=== PATIENT | female | born 1990 | race Caucasian/White ===

== ENCOUNTER 2017-01-02 09:15 | Emergency (ER) | payer OTHER ==
[2017-01-02 09:27] VITALS: BMI 22.6
--- NOTE | 2017-01-02 09:49 | PDOC ---
History of Present Illness - History of Present Illness Initial Comments: 01/02/17 10:14 The patient is a 26 year old female with a significant past medical hx of herpes genitalia who presents to the ED complaining of RLQ abdominal pain and epigastric pain since 0730 this morning. She notes she woke up this morning from the pain and describes the pain as a burning sensation. The patient reports the pain was an 8/10 in severity when she woke up. She notes she was in her normal state of health last night and slept normally. She denies any radiation of pain and has not taken any OTC medication. She states her pain has since improved and is only a 3/10 in severity and feels more like pressure and bloating. The patient notes her pain is exacerbated when sitting up. The patient notes she had one episode of this burning sensation one week ago that lasted only for a few minutes. She also reports she has had constant nausea and dizziness for the past month. The patient denies any trauma. The patient notes she has one child at home, an 8 month old baby girl. She reports she had a normal vaginal delivery. LMP beginning of December. The patient denies dysuria, vaginal discharge, frequency The patient denies fever, chills, cough, SOB, chest pain The patient denies vomiting, diarrhea Allergies: Cefprozil Social: Former smoker (1-2 cigarettes per day for 6-7 years), quit 1 year ago. Smokes marijuana, drinks alcohol on occasion. Surgical: None reported <Silva Delarosa - Last Filed: 01/02/17 11:49> <Georgia Ramos - Last Filed: 01/02/17 12:45> <Joao Dumont - Last Filed: 01/02/17 12:57> - General Chief Complaint: Pain, Acute Stated Complaint: ABD PAIN Time Seen by Provider: 01/02/17 09:49 Past History <Silva Delarosa - Last Filed: 01/02/17 11:49> - Past Medical History Other medical history: DENIES. - Reproductive History Is Patient Now?: No (#): 1 Para: 1 Cervical CA: No Dysfunctional Uterine Bleeding: No Ectopic : No Endometrial CA: No Polycystic Ovaries: No Therapeutic (s) & number: No Tubal Ligation: No Spontaneous : 0 - Psycho/Social/Smoking Cessation Hx Suicidal Ideation: No Smoking History: Former smoker Have you smoked in the past 12 months: No Information on smoking cessation initiated: No <Georgia Ramos - Last Filed: 01/02/17 12:45> <Joao Dumont - Last Filed: 01/02/17 12:57> - Past Medical History Allergies/Adverse Reactions: Allergies Allergy/AdvReac Type Severity Reaction Status Date / Time cefprozil [From Cefzil] Allergy Intermediate Hives Verified 01/02/17 09:24 Home Medications: Ambulatory Orders NK [No Known Home Medication] 01/02/17 Review of Systems - Review of Systems Able to Perform ROS?: Yes Comments:: 01/02/17 10:27 CONSTITUTIONAL: Absent: fever, chills, diaphoresis, generalized weakness, malaise, loss of appetite HEENT: Absent: rhinorrhea, nasal congestion, throat pain, throat swelling, difficulty swallowing, mouth swelling, ear pain, eye pain, visual Changes CARDIOVASCULAR: Absent: chest pain, syncope, palpitations, irregular heart rate, lightheadedness , peripheral edema RESPIRATORY: Absent: cough, shortness of breath, dyspnea with exertion, orthopnea, wheezing, stridor, hemoptysis GASTROINTESTINAL: +RLQ abdominal pain, nausea. Absent: abdominal distension, vomiting, diarrhea, constipation, melena, hematochezia GENITOURINARY: Absent: vaginal discharge, dysuria, frequency, urgency, hesitancy, hematuria, flank pain, genital pain MUSCULOSKELETAL: Absent: myalgia, arthralgia, joint swelling SKIN: Absent: rash, itching, pallor HEMATOLOGIC/IMMUNOLOGIC: Absent: easy bleeding, easy bruising, lymphadenopathy, frequent infections ENDOCRINE: Absent: unexplained weight gain, unexplained weight loss, heat intolerance, cold intolerance NEUROLOGIC: +Dizziness. Absent: headache, focal weakness or paresthesias, unsteady gait, seizure, mental status changes, bladder or bowel incontinence PSYCHIATRIC: Absent: anxiety, depression, suicidal or homicidal ideation, hallucinations. <Silva Delarosa - Last Filed: 01/02/17 11:49> *Physical Exam - Vital Signs Last Vital Signs Temp Pulse Resp BP Pulse Ox 97.9 F 97 H 19 124/63 97 01/02/17 09:24 01/02/17 09:24 01/02/17 09:24 01/02/17 09:24 01/02/17 09:24 - Physical Exam Comments: 01/02/17 10:30 GENERAL: Well developed, well nourished. Awake and alert. In no acute distress. HEENT: Normocephalic, atraumatic. PERRLA, EOMI. No conjunctival pallor. Sclera are non- icteric. Moist mucous membranes. Oropharynx is clear. NECK: Supple. Full ROM. No JVD. Carotid pulses 2+ and symmetric, without bruits. No thyromegaly. No lymphadenopathy. CARDIOVASCULAR: Regular rate and rhythm. No murmurs, rubs, or gallops. Distal pulses are 2+ and symmetric. PULMONARY: No evidence of respiratory distress. Lungs clear to auscultation bilaterally. No wheezing, rales or rhonchi. ABDOMINAL: +Mild discomfort on the LLQ, tenderness to the RLQ. Soft. Non-tender. Non- distended. No rebound or guarding. No organomegaly. Normoactive bowel sounds. MUSCULOSKELETAL Normal range of motion at all joints. No bony deformities or tenderness. No CVA tenderness. EXTREMITIES: No cyanosis. No clubbing. No edema. No calf tenderness. SKIN: +Tattoos. Warm and dry. Normal capillary refill. No rashes. No jaundice. NEUROLOGICAL: Alert, awake, appropriate. Cranial nerves 2-12 intact. No deficits to light touch and temperature in face, upper extremities and lower extremities. No motor deficits in the in face, upper extremities and lower extremities. PSYCHIATRIC: Cooperative. Good eye contact. Appropriate mood and affect. <Silva Delarosa - Last Filed: 01/02/17 11:49> - Vital Signs Last Vital Signs Temp Pulse Resp BP Pulse Ox 97.9 F 97 H 19 124/63 97 01/02/17 09:24 01/02/17 09:24 01/02/17 09:24 01/02/17 09:24 01/02/17 09:24 <Georgia Ramos - Last Filed: 01/02/17 12:45> - Vital Signs Last Vital Signs Temp Pulse Resp BP Pulse Ox 97.9 F 97 H 19 124/63 97 01/02/17 09:24 01/02/17 09:24 01/02/17 09:24 01/02/17 09:24 01/02/17 09:24 <Joao Dumont - Last Filed: 01/02/17 12:57> ED Treatment Course - LABORATORY CBC & Chemistry Diagram: 01/02/17 10:22 01/02/17 10:22 - RADIOLOGY Radiograph Interpretation: 01/02/17 11:48 Transvaginal US The uterus is normal in size measuring 8.1 x 6.0 x 5.0 cm. No uterine masses are seen. A thickened endometrium of 1.4 cm thickness was demonstrated. The ovaries are normal in size and texture with arterial flow documented to both ovaries. There is no evidence of torsion. There is no evidence of adnexal masses. Free fluid is identified within the cul- de-sac. IMPRESSION: Thickened endometrium and free pelvic fluid. No evidence of ovarian torsion or acute pathology. Please see above discussion. Reported By: Isreal Salazar MD 01/02/17 1139 <Silva Delarosa - Last Filed: 01/02/17 11:49> - LABORATORY CBC & Chemistry Diagram: 01/02/17 10:22 01/02/17 10:22 <Georgia Ramos - Last Filed: 01/02/17 12:45> - LABORATORY CBC & Chemistry Diagram: 01/02/17 10:22 01/02/17 10:22 - ADDITIONAL ORDERS Additional order review: Laboratory Results 01/02/17 01/02/17 01/02/17 10:22 10:22 10:22 Sodium 140 Potassium 4.2 Chloride 105 Carbon Dioxide 27 Anion Gap 8 BUN 13 Creatinine 0.6 Creat Clearance w eGFR > 60 Random Glucose 76 Calcium 8.7 Total Bilirubin 0.4 AST 23 ALT 42 Alkaline Phosphatase 135 H Total Protein 7.3 Albumin 3.8 Lipase 67 L Serum , Qual Negative Urine Color Ltyellow Urine Appearance Clear Urine pH 6.0 Ur Specific [place] 1.025 Urine Protein Negative Urine Glucose (UA) Negative Urine Ketones Negative Urine Blood Negative Urine Nitrite Negative Urine Bilirubin Negative Urine Urobilinogen Negative Ur Leukocyte Esterase Negative 01/02/17 10:22 RBC 5.19 MCV 80.0 MCHC 32.4 RDW 15.2 MPV 9.4 Neutrophils % 60.3 Lymphocytes % 28.1 Monocytes % 8.7 Eosinophils % 2.4 Basophils % 0.5 <Joao Dumont - Last Filed: 01/02/17 12:57> Medical Decision Making - Medical Decision Making 01/02/17 9:49 Patient seen and examined at bed side this morning. Vitals unremarkable. Patient looks comfortable, now complaints of abdominal discomfort and bloating. Will order CBC, CMP, UA, test, Lipase Transvaginal Ultrasound to r/o tortion/cyst No pain medication for now as patient she doesn't need it now, her pain has gone. 01/02/17 10:54 Patient reassessed. Abdominal pain has resolved without any medication. She says she is bit nauseous but doesn't want any medication. 01/02/17 11:00 Transvaginal Ultrasound note reviewed, shows thickened endometrium with free fluid in the cul de sac. No ovarian tortion or culture. -Sent GC culture Parker score for appendicitis is 4. Normal WBC, abdominal pain has resolved completely without any medication. Vitals are unremarkable hence appendicitis ruled out. On the basis of history/physical and investigation, with the Parker score of 4 , normal WBC, appendicitis less likely. Transvaginal USG showed free fluid in the cul de sac. GC culture sent. Patient was recommended to do an abdominal CT scan with IV contrast to rule out appendicitis and any other acute pathology. However, patient refused to stay after understanding the risks and benefits. Patient mentioned she will visit her Primary doctor tomorrow for further evaluation. Patient has been advised to come back to the Emergency Department immediately if symptoms persist or gets worse or develop new symptoms. Illness, Investigation and Plan of care explained to the patient. She verbalized understanding. Case seen and discussed with Dr. Dumont. <Georgia Ramos - Last Filed: 01/02/17 12:45> *DC/Admit/Observation/Transfer <Silva Delarosa - Last Filed: 01/02/17 11:49> - Discharge Dispostion Admit: No <Georgia Ramos - Last Filed: 01/02/17 12:45> <Joao Dumont - Last Filed: 01/02/17 12:57> Diagnosis at time of Disposition: Abdominal pain - Patient Instructions Printed Discharge Instructions: Facts About Sexually Transmitted Infections Additional Instructions: Your blood work looks normal. test negative. Please visit your primary doctor tomorrow to rule out ovarian cyst, polycystic ovarian disease or any other acute problems. Return to the Emergency Department immediately if you develop new symptoms or the symptoms negative. - Post Discharge Activity Work/School Note: Back to Work
--- NOTE | 2017-01-02 09:51 | PDOC ---
Attending Attestation - Medical Decision Making 01/02/17 11:49 Transvaginal US The uterus is normal in size measuring 8.1 x 6.0 x 5.0 cm. No uterine masses are seen. A thickened endometrium of 1.4 cm thickness was demonstrated. The ovaries are normal in size and texture with arterial flow documented to both ovaries. There is no evidence of torsion. There is no evidence of adnexal masses. Free fluid is identified within the cul- de-sac. IMPRESSION: Thickened endometrium and free pelvic fluid. No evidence of ovarian torsion or acute pathology. Please see above discussion. Reported By: Isreal Salazar MD 01/02/17 1139 <Silva Delarosa - Last Filed: 01/02/17 11:49> - Resident Resident Name: Georgia Ramos - ED Attending Attestation I have performed the following: I have examined & evaluated the patient, The case was reviewed & discussed with the resident, I agree w/resident's findings & plan, Exceptions are as noted - HPI HPI: 01/02/17 10:18 The patient is a 26-year-old female, who presents to the emergency department with the acute onset of right lower quadrant pain, accompanied by mild nausea. She denies urinary symptoms. She denies vaginal discharge. - Physicial Exam PE: 01/02/17 10:18 She is well-appearing and in no acute distress She has mild tenderness to deep palpation in the right lower quadrant She has no rebound or guarding - Medical Decision Making 01/02/17 10:18 She is well-appearing and in no acute distress Will obtain transvaginal ultrasound to rule out torsion/ovarian cyst Will obtain CBC and CRP to rule out infectious causes 01/02/17 12:34 Labs noted CRP was not obtained The patient's pain is completely resolved Her repeat abdominal exam is nontender, even with deep palpation in the lower quadrants and suprapubic area Pelvic exam, performed by medical office technologist, without cervical motion tenderness She does not have risk factors for PID We discussed the risks and benefits of further evaluation with abdominal and pelvic CT The patient adamantly declined She understands the extreme importance of returning if her symptoms recur, or if she develops new symptoms She would like to go home Clinical impression: Abdominal pain; resolved I discussed the physical exam findings, ancillary test results and final diagnoses with the patient. I answered all of the patient's questions. The patient was satisfied with the care received and felt comfortable with the discharge plan and treatment plan. The patient will call their primary care physician within 24 hours to arrange follow-up and will return to the Emergency Department with any new, persistent or worsening symptoms. <Joao Dumont - Last Filed: 01/02/17 12:35>
[2017-01-02 11:28] LABS: BASOPHIL 0.5 % (0-2.0); EOSINOPHIL 2.4 % (0-4.5); MCH 25.9 pg (25.7-33.7); MCHC 32.4 g/dl (32.0-36.0); MEAN PLT VOLUME 9.4 fl (7.5-11.1); NEUTROPHILS 60.3 % (42.8-82.8); PLATELET COUNT 175 K/MM3 (134-434); RDW 15.2 % (11.6-15.6); WHITE BLOOD COUNT 8.1 K/mm3 (4.0-10.0)
[2017-01-02 11:29] LABS: URINE APPEARANCE CLEAR; URINE BILIRUBIN NEGATIVE (NEGATIVE); URINE BLOOD NEGATIVE (NEGATIVE); URINE COLOR LTYELLOW; URINE GLUCOSE (UA) NEGATIVE (NEGATIVE); URINE KETONE NEGATIVE (NEGATIVE); URINE LEUK ESTERASE NEGATIVE (NEGATIVE); URINE NITRITE NEGATIVE (NEGATIVE); URINE PROTEIN NEGATIVE (NEGATIVE); URINE UROBILINOGEN NEGATIVE E.U./dl (0.2-1.0)
[2017-01-02 11:55] LABS: ALBUMIN 3.8 g/dl (3.4-5.0); ALK PHOS 135 U/L (45-117); ANION GAP 8 (8-16); BILIRUBIN,TOTAL 0.4 mg/dL (0.2-1.0); CALCIUM 8.7 mg/dL (8.5-10.1); CO2 27 mmol/L (21-32); CREATININE 0.6 mg/dL (0.55-1.02); GLUCOSE,RANDOM 76 mg/dL (74-106); SGOT/AST 23 U/L (15-37); SGPT/ALT 42 U/L (12-78); TOT PROT 7.3 g/dl (6.4-8.2)
[2017-01-02 12:58] VITALS: BP 124/68; PULSE 68; TEMP 98
== END 2017-01-02 13:00 | disposition home or self-care (01) ==
LOC: JER 09:15
DX: R10.31 Right lower quadrant pain (principal)
CPT/HCPCS: 36415; 76830-TC; 80053; 81003; 83690; 84703; 85025; 99284-25

== ENCOUNTER → 2017-03-22 | Emergency (ER) | payer OTHER ==
[~2017-03-22] MED LIST: SODIUM CHLORIDE 0.9% 1000 ML INFUS.BAG IV ONE
[2017-03-22 23:19] VITALS: BP 124/69; PULSE 79; TEMP 98.7; BMI 23.8
--- NOTE | 2017-03-22 23:36 | PDOC ---
History of Present Illness - General Chief Complaint: Lightheaded Stated Complaint: NAUSEA, BODY PAIN Time Seen by Provider: 03/22/17 23:15 - History of Present Illness Initial Comments: 03/22/17 23:35 CHIEF COMPLAINT: dizziness HISTORY OF PRESENT ILLNESS: 26 yo F with no PMH presents to ED with 1.5 months of dizziness. Patient reports seeing her PCP Dr. Hoyos one month ago and was prescribed meclizine for vertigo, but she has not been taking it "because I don' t know if I can because I'm ." She reports nausea but not vomiting or diarrhea. No recent travel or sick contacts. PAST MEDICAL HISTORY: Denies past medical history FAMILY HISTORY: Denies SOCIAL HISTORY: Denies tobacco, alcohol use. Daily marijuana use. SURGICAL HISTORY: Denies ALLERGIES: cefprozil REVIEW OF SYSTEMS General/Constitutional: Denies fever or chills. Denies weakness, weight change. HEENT: Denies change in vision. Denies ear pain or discharge. Denies sore throat. Cardiovascular: Denies chest pain or shortness of breath. Respiratory: Denies cough, wheezing, or hemoptysis. Gastrointestinal: Denies nausea, vomiting, diarrhea or constipation. Denies rectal bleeding. Genitourinary: Denies dysuria, frequency, or change in urination. Musculoskeletal: Denies joint or muscle swelling or pain. Denies neck or back pain. Skin and breasts: Denies rash or easy bruising. Neurologic: Vertigo x 1.5 months. Denies loss of consciousness, or loss of sensation. PHYSICAL EXAM General Appearance: Well-appearing, appropriately dressed. No apparent distress , no intoxication. HEENT: EOMI, PERRLA, normal ENT inspection, normal voice, TMs normal, pharynx normal. No conjunctival pallor. No photophobia, scleral icterus. Neck: Supple. Trachea midline. No tenderness, rigidity, carotid bruit, stridor , lymphadenopathy, or thyromegaly. Respiratory/Chest: Lungs CTAB. Cardiovascular: RRR. S1, S2. Gastrointestinal/Abdominal: Normal bowel sounds. Abdomen soft, non-distended. No tenderness or rebound tenderness. No organomegaly, pulsatile mass, guarding , hernia, hepatomegaly, splenomegaly. Lymphatic: No adenopathy, tenderness. Musculoskeletal/Extremities: Normal inspection. FROM of all extremities, normal capillary refill. Pelvis Stable. No CVA tenderness. No tenderness to extremities, pedal edema, swelling, erythema or deformity. Integumentary: Appropriate color, dry, warm. No cyanosis, erythema, jaundice or rash Neurologic: nsh teacher II-XII intact. Fully oriented, alert. Appropriate mood/affect. Motor strength 5/5. No appreciable EOM palsy, facial droop or sensory deficit. 03/23/17 02:53 03/23/17 02:55 Past History - Past Medical History Allergies/Adverse Reactions: Allergies Allergy/AdvReac Type Severity Reaction Status Date / Time cefprozil [From Cefzil] Allergy Intermediate Hives Verified 03/22/17 23:10 Home Medications: Ambulatory Orders NK [No Known Home Medication] 01/02/17 - Reproductive History (#): 1 Para: 1 Cervical CA: No Dysfunctional Uterine Bleeding: No Ectopic : No Endometrial CA: No Polycystic Ovaries: No Therapeutic (s) & number: No Tubal Ligation: No Spontaneous : 0 - Psycho/Social/Smoking Cessation Hx Suicidal Ideation: No Smoking History: Current every day smoker Have you smoked in the past 12 months: No Number of Cigarettes Smoked Daily: 1 Information on smoking cessation initiated: No Hx Alcohol Use: No Drug/Substance Use Hx: No *Physical Exam - Vital Signs Last Vital Signs Temp Pulse Resp BP Pulse Ox 98.7 F 79 14 124/69 100 03/22/17 23:10 03/22/17 23:10 03/22/17 23:10 03/22/17 23:10 03/22/17 23:10 ED Treatment Course - LABORATORY CBC & Chemistry Diagram: 03/23/17 00:40 03/23/17 00:40 Medical Decision Making - Medical Decision Making 03/23/17 02:55 26 yo F with no PMH presents to ED with 1.5 months of dizziness and nausea. -CBC, CMP -urine preg Labs unremarkable. ADvised patient to take meclizine as prescribed by PCP and f/u with PCP and neuro this week. Advised patient of signs and symptoms for return to ER; patient verbalized understanding and agrees to plan. *DC/Admit/Observation/Transfer Diagnosis at time of Disposition: Vertigo - Discharge Dispostion Disposition: HOME Condition at time of disposition: Stable Admit: No - Referrals Referrals: Rolando Hoyos MD [Primary Care Provider] - Hunter Dawson MD [Staff Physician] - - Patient Instructions Printed Discharge Instructions: DI for Benign Paroxysmal Positional Vertigo Additional Instructions: Please take the meclizine that was prescribed by Dr. Hoyos and follow up with him this week. Please follow up with neurology this week as well (referral provided). As discussed, if you experience any severe, sudden headache; change in your vision, speech, walking, or mental status, or any new or worsening symptoms, please return to the ER.
[2017-03-23 00:58] LABS: BASOPHIL 0.6 % (0-2.0); EOSINOPHIL 2.3 % (0-4.5); MCH 26.1 pg (25.7-33.7); MCHC 32.8 g/dl (32.0-36.0); MEAN CELL VOLUME 79.7 fl (80-96); MEAN PLT VOLUME 9.1 fl (7.5-11.1); NEUTROPHILS 49.2 % (42.8-82.8); PLATELET COUNT 190 K/MM3 (134-434); RDW 14.3 % (11.6-15.6); WHITE BLOOD COUNT 8.8 K/mm3 (4.0-10.0)
[2017-03-23 01:19] LABS: ALBUMIN 3.9 g/dl (3.4-5.0); ANION GAP 9 (8-16); CALCIUM 8.9 mg/dL (8.5-10.1); CO2 26 mmol/L (21-32); COCKROFT - GAULT 131.3335; CREATININE 0.7 mg/dL (0.55-1.02); GLUCOSE,RANDOM 107 mg/dL (74-106); SGOT/AST 18 U/L (15-37); SGPT/ALT 28 U/L (12-78)
[2017-03-23 01:21] LABS: ALK PHOS 109 U/L (45-117); BILIRUBIN,TOTAL 0.6 mg/dL (0.2-1.0); TOT PROT 7.3 g/dl (6.4-8.2)
== END | disposition home or self-care (01) ==
LOC: JER 23:06
DX: H81.10 Benign paroxysmal vertigo, unspecified ear (principal)
CPT/HCPCS: 36415; 80053; 84703; 85025; 99282-25

== ENCOUNTER 2017-06-09 08:10 | Emergency (ER) | payer OTHER ==
[2017-06-09 08:31] VITALS: PULSE 63; TEMP 98.6
--- NOTE | 2017-06-09 09:22 | PDOC ---
History of Present Illness - General Chief Complaint: Psychiatric Stated Complaint: PANIC ATTACK Time Seen by Provider: 06/09/17 08:25 - History of Present Illness Initial Comments: 06/09/17 09:28 26 yo F with h/o BPPV and panic attacks who presents with SOB. States that 1 hour ago experienced panic like symptoms following her carbon monoxide detector going off. Experienced Nausea, palpitations, chest tightness, ADAM, and vertigo. She reports firefighters measuring level 0 CO in living envt. Symptoms have upon arrival to ED. Still complains of slight ADAM and vertigo. Denies cough, fevers/chills, lightheadedness, chest pain, urinary, or bowel symptoms. Takes Meclizine prn for vertigo. Last use was 24 hours ago and states that she does not want to take any more sedating medication because of concern of drowsiness when caring for her infant. Past History - Past Medical History Allergies/Adverse Reactions: Allergies Allergy/AdvReac Type Severity Reaction Status Date / Time cefprozil [From Cefzil] Allergy Intermediate Hives Verified 06/09/17 08:23 Home Medications: Ambulatory Orders NK [No Known Home Medication] 01/02/17 Anemia: No Asthma: No Cancer: No Cardiac Disorders: No CVA: No COPD: No DVT: No Dementia: No Diabetes: No Dialysis: No GI Disorders: No Disorders: No HTN: No Hypercholesterolemia: No HIV: No Kidney Stones: No Liver Disease: No Psychiatric Problems: No Seizures: No Thyroid Disease: No Lung CA: No - Surgical History Abdominal Surgery: No Appendectomy: No Cardiac Surgery: No Cholecystectomy: No Gastric Stapling: No GI Surgery: No Lung Surgery: No Neurologic Surgery: No - Reproductive History (#): 1 Para: 1 Cervical CA: No Dysfunctional Uterine Bleeding: No Ectopic : No Endometrial CA: No Polycystic Ovaries: No Therapeutic (s) & number: No Tubal Ligation: No Spontaneous : 0 - Immunization History Immunization Up to Date: Yes - Psycho/Social/Smoking Cessation Hx Suicidal Ideation: No Smoking History: Never smoked Have you smoked in the past 12 months: No Number of Cigarettes Smoked Daily: 1 Hx Alcohol Use: No Drug/Substance Use Hx: No Review of Systems - Review of Systems Comments:: 06/09/17 18:30 GENERAL/CONSTITUTIONAL: No fever or chills. No weakness. HEAD, EYES, EARS, NOSE AND THROAT: No change in vision. No ear pain or discharge. No sore throat. CARDIOVASCULAR: No chest pain or shortness of breath RESPIRATORY: No cough, wheezing, or hemoptysis. GASTROINTESTINAL: No nausea, vomiting, diarrhea or constipation. GENITOURINARY: No dysuria, frequency, or change in urination. MUSCULOSKELETAL: No joint or muscle swelling or pain. No neck or back pain. SKIN: No rash NEUROLOGIC: + dizziness. No headache, vertigo, loss of consciousness, or change in strength/sensation. ENDOCRINE: No increased thirst. No abnormal weight change HEMATOLOGIC/LYMPHATIC: No anemia, easy bleeding, or history of blood clots. ALLERGIC/IMMUNOLOGIC: No hives or skin allergy. *Physical Exam - Vital Signs Last Vital Signs Temp Pulse Resp BP Pulse Ox 98.6 F 63 20 104/62 100 06/09/17 08:23 06/09/17 08:23 06/09/17 08:23 06/09/17 08:23 06/09/17 08:23 - Physical Exam Comments: 06/09/17 18:32 GENERAL: Awake, alert, and fully oriented, in no acute distress HEAD: No signs of trauma, normocephalic, atraumatic EYES: PERRLA, EOMI, sclera anicteric, conjunctiva clear. No spann red mucosal membranes. ENT: Auricles normal inspection, hearing grossly normal, nares patent, oropharynx clear without exudates. Moist mucosa NECK: Normal ROM, supple, no lymphadenopathy, JVD, or masses LUNGS: No distress, speaks full sentences, clear to auscultation bilaterally HEART: Regular rate and rhythm, normal S1 and S2, no murmurs, rubs or gallops, peripheral pulses normal and equal bilaterally. ABDOMEN: Soft, nontender, normoactive bowel sounds. No guarding, no rebound. No masses EXTREMITIES: Normal inspection, Normal range of motion, no edema. No clubbing or cyanosis. NEUROLOGICAL: Cranial nerves II through XII grossly intact. Normal speech, normal gait, no focal sensorimotor deficits SKIN: Warm, Dry, normal turgor, no rashes or lesions noted. Heart Score/ECG Review - Electrocardiogram EKG: Normal - Age Age: </= 45 - ECG Intrepretation Rhythm: Regular Rhythm - Howard Howard: Normal - P and UT Prominent R with upright T in V1 (true posterior [place]): No Delta Wave(s) Present: No WPW: No - QRS Poor R Wave Progression: No Q Wave Present: No - ST and T Early Repolarization: No Non Specific ST-T Wave changes: No Flattened T Waves: No Prolonged Q-T Interval: No - ECG Impressions Normal ECG: Yes Non-specific ST Elevation: No Ischemic Changes: No Torsades sacha Pointes: No WPW: No ED Treatment Course - LABORATORY CBC & Chemistry Diagram: 06/09/17 09:20 Medical Decision Making - Medical Decision Making 06/09/17 18:33 26 yo F with h/o BPPV and panic attacks who presents with SOB. Complains of SOB , tremulousness, ADAM, and dizziness following carbon monoxide detectors ringing. States that firefighters arrived and assessed envt. with 0 % CO levels. Pt. believes incident triggered her BPPV and anxiety/panic attack. Symptoms resolved upon arrival to ED. Physical exam benign. Absent spann red mucosal membranes, ataxia, or, lethargy to suggest CO poisoning or posterior infarct. Pt. with no respiratory complaints. States that she has been experiencing chronic vertiginous symptoms for past 2-3 months. States that she does not wish to receive benzodiazepenes or other sedating medication d/t interference with ability to care for her one year old daughter. DDx: BPPV, Panic Attack, Central Vertigo . ED course: 06/09/17 18:52 EKG: Unremarkable ENT referall for chronic vertigo. Stable Discharge *DC/Admit/Observation/Transfer Diagnosis at time of Disposition: Vertigo, Panic attack - Discharge Dispostion Disposition: HOME Admit: No - Referrals Referrals: Rolando Hoyos MD [Primary Care Provider] - Joao Downey MD [Staff Physician] - - Patient Instructions Printed Discharge Instructions: Anxiety and Panic Attacks (Alternative Therapy) Additional Instructions: Please return to the emergency department if you experience severe chest pain, loss of consciousness, or worsening symptoms. Also, please follow up with your Ear Nose Throat physician when possible to further evaluate causes of dizziness. It was nice meeting you and your family. Your daughter is wilber. I hope you feel better. Thank you. Print Language: ANGUILLAN - Attestations Physician Attestion: 06/09/17 09:22 I, Dr. Huber Luna, attest that this document has been prepared under my direction and personally reviewed by me in its entirety. I further attest, that it accurately reflects all work, treatment, procedures and medical decision -making performed by me.
--- NOTE | 2017-06-09 09:31 | PDOC ---
Attending Attestation - Resident Resident Name: Huber Luna - ED Attending Attestation I have performed the following: I have examined & evaluated the patient, The case was reviewed & discussed with the resident, I agree w/resident's findings & plan, Exceptions are as noted - HPI HPI: 06/09/17 09:27 Healthy 26-year-old female with distant history of anxiety/panic attacks not currently on any medications, recently diagnosed BPV presents with EMS after having anxiety/panic attack in the setting of smoke detectors alarming this morning. The apartment was evaluated by fire department and everything cleared including carbon monoxide, given the events of the morning the patient's subsequently had typical symptoms of her panic attacks such as palpitations and shortness of breath, did not take anything but activated EMS. Symptoms now resolved, denies any cardiopulmonary complaints, is calm and wants to go home. Patient has had intermittent positional vertigo for about 2 months, is being treated with meclizine which she takes with improvement, and is scheduled to follow up with ENT. No other concerning red flags on history. - Physicial Exam PE: 06/09/17 09:29 Vital signs normal. Well-appearing, sitting comfortably in stretcher, appropriate and conversant. Her baby is with her, well cared for. Neuro exam is nonfocal, cranial pulmonary exam is normal Psych exam is normal, mood is appropriate - Medical Decision Making 06/09/17 09:29 Patient seen and evaluated with the resident. I agree with the overall evaluation, assessment, and management with the following summary of visit: Healthy 26-year-old female with an anxiety/panic attack sparked by alarms going off in the house morning. Carbon monoxide level was normal, she has no respiratory complaints, so toxicity is not clinically concerning. Panic attack has resolved, she avoids benzos because she cares for her daughter. The patient' s positional vertigo has been going on for some time, but in the absence of any acute complaints or neurological deficits, I prompted her to pursue her ENT follow-up. EKG is normal, no ischemia or interval abnormalities Feels well, agrees with discharge, understands return criteria.
[2017-06-09 09:37] LABS: BASOPHIL 0.8 % (0-2.0); EOSINOPHIL 1.9 % (0-4.5); MCH 26.8 pg (25.7-33.7); MCHC 32.9 g/dl (32.0-36.0); MEAN CELL VOLUME 81.5 fl (80-96); MEAN PLT VOLUME 8.9 fl (7.5-11.1); PLATELET COUNT 171 K/MM3 (134-434); RDW 14.7 % (11.6-15.6); WHITE BLOOD COUNT 7.7 K/mm3 (4.0-10.0)
[2017-06-09 09:47] VITALS: BP 104/62; BMI 20.9
--- NOTE | 2017-06-09 12:14 | EKG ---
Test Reason : Blood Pressure : / mmHG Vent. Rate : 057 BPM Atrial Rate : 057 BPM P-R Int : 120 ms QRS Dur : 084 ms QT Int : 434 ms P-R-T Axes : 041 062 009 degrees QTc Int : 422 ms SINUS BRADYCARDIA WITH SINUS ARRHYTHMIA OTHERWISE NORMAL ECG NO PREVIOUS ECGS AVAILABLE Confirmed by CORINNE ADAMS MD ([id number]) on 06/09/2017 12:14:40 PM Referred By: Confirmed By:CORINNE ADAMS MD
== END 2017-06-09 09:46 | disposition home or self-care (01) ==
LOC: JER 08:10
DX: F41.0 Panic disorder [episodic paroxysmal anxiety] (principal); R42 Dizziness and giddiness
CPT/HCPCS: 36415; 85025; 93005; 93010; 99282-25

== ENCOUNTER 2017-08-08 14:42 | Emergency (ER) | payer OTHER ==
[2017-08-08 15:05] VITALS: BP 117/74; PULSE 59; TEMP 98.6; BMI 21.7
--- NOTE | 2017-08-08 15:33 | PDOC ---
History of Present Illness - General Chief Complaint: Weakness Stated Complaint: WEAKNESS, PAIN LOWER LT SIDE Time Seen by Provider: 08/08/17 15:02 History Source: Patient Exam Limitations: No Limitations - History of Present Illness Initial Comments: 08/08/17 15:33 This is a 26-year-old female with past medical history of asthma and BPPV who presents today with toothache 3 months worsening over the past 3 days. She also complains of intermittent dizziness, nausea and weakness for the past 9 months. She states her primary doctor Rolando Hoyos, is evaluating her for the dizziness, nausea and weakness and she reports a negative CAT scan of the chest and chest x-ray one week ago. At present, patient denies chest pain, shortness of breath, dizziness, nausea, weakness. The pain are due to tooth radiates bitemporally which she describes as a throbbing, pulsating pressure. Patient states she has secured an appointment with the dentist on August 12. She denies blurred vision, diplopia, difficulty swallowing or vocal changes. PMD: Rolando Hoyos PMH: asthma, BPPV, vaginal delivery 15 months ago with retained products PSH: denies Allergy: Cefprozil Tobacco: none in the past 2 years- 2pack years prior ETOH: denies Illicits: daily THC Currently Past History - Past Medical History Allergies/Adverse Reactions: Allergies Allergy/AdvReac Type Severity Reaction Status Date / Time cefprozil [From Cefzil] Allergy Intermediate Hives Verified 08/08/17 14:48 Home Medications: Ambulatory Orders Clindamycin [Cleocin -] 450 mg PO TID #21 capsule 08/08/17 Anemia: No Asthma: No Cancer: No Cardiac Disorders: No CVA: No COPD: No DVT: No Dementia: No Diabetes: No Dialysis: No GI Disorders: No Disorders: No HTN: No Hypercholesterolemia: No Kidney Stones: No Liver Disease: No Psychiatric Problems: Yes (anxiety depression) Seizures: No Thyroid Disease: No Lung CA: No - Surgical History Abdominal Surgery: No Appendectomy: No Cardiac Surgery: No Cholecystectomy: No Gastric Stapling: No GI Surgery: No Lung Surgery: No Neurologic Surgery: No - Reproductive History (#): 1 Para: 1 Cervical CA: No Dysfunctional Uterine Bleeding: No Ectopic : No Endometrial CA: No Polycystic Ovaries: No Therapeutic (s) & number: No Tubal Ligation: No Spontaneous : 0 - Immunization History Immunization Up to Date: Yes - Suicide/Smoking/Psychosocial Hx Smoking History: Never smoked Have you smoked in the past 12 months: No Number of Cigarettes Smoked Daily: 1 Information on smoking cessation initiated: No Hx Alcohol Use: No Drug/Substance Use Hx: No Substance Use Type: Marijuana Review of Systems - Review of Systems Able to Perform ROS?: Yes Is the patient limited Bulgarian proficient: No Constitutional: No: Symptoms Reported HEENTM: Yes: Dental Problems Respiratory: Yes: Cough (occasional dry) Cardiac (ROS): No: Symptoms Reported ABD/GI: No: Symptoms Reported : No: Symptoms Reported Musculoskeletal: No: Symptoms Reported Integumentary: No: Symptoms Reported Neurological: No: Symptoms reported *Physical Exam - Vital Signs Last Vital Signs Temp Pulse Resp BP Pulse Ox 98.6 F 59 L 20 117/74 98 08/08/17 15:02 08/08/17 15:02 08/08/17 15:02 08/08/17 15:02 08/08/17 15:02 - Physical Exam General Appearance: Yes: Appropriately Dressed. No: Apparent Distress HEENT: positive: EOMI, MARIANA, Other (poor dentition with large caries on multiple teeth) Neck: positive: Trachea midline, Supple. negative: Tender Respiratory/Chest: positive: Lungs Clear, Normal Breath Sounds. negative: Respiratory Distress, Accessory Muscle Use Cardiovascular: positive: Regular Rhythm, Regular Rate, S1, S2, Murmur. negative: Edema, JVD Gastrointestinal/Abdominal: positive: Normal Bowel Sounds, Soft. negative: Tender, Organomegaly Musculoskeletal: positive: Normal Inspection. negative: CVA Tenderness Extremity: positive: Normal Inspection, Normal Range of Motion Integumentary: positive: Normal Color, Dry, Warm Neurologic: positive: aircraft seat upholsterer II-XII NML intact, Fully Oriented, Alert, Normal Response, Motor Strength 5/5 Heart Score/ECG Review - ECG Intrepretation Rhythm: Regular Rhythm - ECG Impressions Normal ECG: Yes Medical Decision Making - Medical Decision Making 08/08/17 15:37 A: This is a 26-year-old female with past medical history of asthma and BPPV who presents today with toothache 3 months worsening over the past 3 days. She also complains of intermittent dizziness, nausea and weakness for the past 9 months. She states her primary doctor Rolando Hoyos, is evaluating her for the dizziness, nausea and weakness and she reports a negative CAT scan of the chest and chest x-ray one week ago. At present, patient denies chest pain, shortness of breath, dizziness, nausea, weakness. The pain are due to tooth radiates bitemporally which she describes as a throbbing, pulsating pressure. Patient states she has secured an appointment with the dentist on August 12. She denies blurred vision, diplopia, difficulty swallowing or vocal changes. Examination of the oropharynx reveals multiple large dental caries on multiple teeth. Patient is tender to light palpation over tooth #3. No tenderness to palpation of the remainder of face. Neck is supple without lymphadenopathy. Lungs clear to auscultation bilaterally. S1 and S2 present regular rate and rhythm. Systolic murmur 2/ 6 noted at the left sternal border. Normal active bowel sounds. Abdomen soft nontender nondistended. Patient reports occasional pain while trying to pass stool. Patient with occasional cough during exam. DDx: dental decay P: CXR EKG Clinda 450mg po tid 08/08/17 16:52 Chest x-ray as read by me: No acute pulmonary issues noted. Visualized osseous structures intact. I discussed the physical exam findings, ancillary test results and final diagnoses with the patient. I answered all of the patient's questions. The patient was satisfied with the care received and felt comfortable with the discharge plan and treatment plan. The patient will call Dr. Rolando Hoyos within 96 hours to arrange follow-up and will return to the Emergency Department with any new, persistent or worsening symptoms. 08/08/17 17:03 08/08/17 17:19 *DC/Admit/Observation/Transfer Diagnosis at time of Disposition: Toothache - Discharge Dispostion Disposition: HOME Condition at time of disposition: Stable Admit: No - Prescriptions Prescriptions: Clindamycin [Cleocin -] 450 mg PO TID #21 capsule - Referrals Referrals: Rolando Hoyos MD [Primary Care Provider] - - Patient Instructions Printed Discharge Instructions: DI for Tooth Decay Additional Instructions: Keep point with dentist as previously scheduled. Take Tylenol as directed by manufacturers instructions for pain. Take Clindamycin 3 times a day until all the medication is finished or until the dentist tells you to stop. Thank you for choosing us to provide for emergent health care needs.
--- NOTE | 2017-08-09 13:02 | EKG ---
Test Reason : Blood Pressure : / mmHG Vent. Rate : 052 BPM Atrial Rate : 052 BPM P-R Int : 118 ms QRS Dur : 080 ms QT Int : 430 ms P-R-T Axes : 040 048 011 degrees QTc Int : 399 ms SINUS BRADYCARDIA WITH SINUS ARRHYTHMIA NONSPECIFIC T WAVE ABNORMALITY ABNORMAL ECG WHEN COMPARED WITH ECG OF 09-JUN-2017 09:14, NONSPECIFIC T WAVE ABNORMALITY NOW EVIDENT IN LATERAL LEADS Confirmed by ASHLY REESE MD ([id number]) on 08/09/2017 1:01:46 PM Referred By: Confirmed By:ASHLY REESE MD
== END 2017-08-08 17:18 | disposition home or self-care (01) ==
LOC: JER 14:42
DX: K08.89 Other specified disorders of teeth and supporting structures (principal)
CPT/HCPCS: 71020-TC; 84703; 93005; 93010; 99282-25

== ENCOUNTER 2017-11-22 19:12 | Emergency (ER) | payer OTHER ==
[2017-11-22 19:17] VITALS: BP 141/86; PULSE 66; TEMP 98.6; BMI 20.3
--- NOTE | 2017-11-22 19:44 | PDOC ---
History of Present Illness - General Chief Complaint: Toothache Stated Complaint: PAIN Time Seen by Provider: 11/22/17 19:21 - History of Present Illness Initial Comments: 11/22/17 19:41 CHIEF COMPLAINT: dental pain HISTORY OF PRESENT ILLNESS: 27 yo F with no significant PMH presents to [facility] with dental pain. Patient reports she has been having "some dental work done" and had a tooth pulled recently as well as a root canal. She reports that she has a wisdom tooth coming in "but there isn't enough space" and the pain is "unbearable." PAST MEDICAL HISTORY: Denies past medical history FAMILY HISTORY: Denies SOCIAL HISTORY: Denies tobacco, alcohol, illicit drug use. SURGICAL HISTORY: Denies ALLERGIES: cefprozil REVIEW OF SYSTEMS General/Constitutional: Denies fever or chills. Denies weakness, weight change. HEENT: Dental pain. Denies change in vision. Denies ear pain or discharge. Denies sore throat. Cardiovascular: Denies chest pain or shortness of breath. Respiratory: Denies cough, wheezing, or hemoptysis. Gastrointestinal: Denies nausea, vomiting, diarrhea or constipation. Denies rectal bleeding. Genitourinary: Denies dysuria, frequency, or change in urination. Musculoskeletal: Denies joint or muscle swelling or pain. Denies neck or back pain. Skin and breasts: Denies rash or easy bruising. Neurologic: Denies headache, vertigo, loss of consciousness, or loss of sensation. PHYSICAL EXAM General Appearance: Well-appearing, appropriately dressed. No apparent distress , no intoxication. HEENT: EOMI, PERRLA, normal ENT inspection, normal voice, TMs normal, pharynx normal. No conjunctival pallor. No photophobia, scleral icterus. Neck: Supple. Trachea midline. No tenderness, rigidity, carotid bruit, stridor , lymphadenopathy, or thyromegaly. Respiratory/Chest: Lungs CTAB. No shortness of breath, chest tenderness, respiratory distress, accessory muscle use. No crackles, rales, rhonchi, stridor , wheezing, dullness Cardiovascular: RRR. S1, S2. No JVD, murmur, bradycardia, tachycardia. Vascular Pulses: Dorsalis-Pedis (R): 2+, Dorsalis-Pedis (L): 2+ Gastrointestinal/Abdominal: Normal bowel sounds. Abdomen soft, non-distended. No tenderness or rebound tenderness. No organomegaly, pulsatile mass, guarding , hernia, hepatomegaly, splenomegaly. Lymphatic: No adenopathy, tenderness. Musculoskeletal/Extremities: Normal inspection. FROM of all extremities, normal capillary refill. Pelvis Stable. No CVA tenderness. No tenderness to extremities, pedal edema, swelling, erythema or deformity. Integumentary: Appropriate color, dry, warm. No cyanosis, erythema, jaundice or rash Neurologic: belting cutter II-XII intact. Fully oriented, alert. Appropriate mood/affect. Motor strength 5/5. No appreciable EOM palsy, facial droop or sensory deficit. Past History - Past Medical History Allergies/Adverse Reactions: Allergies Allergy/AdvReac Type Severity Reaction Status Date / Time cefprozil [From Cefzil] Allergy Intermediate Hives Verified 11/22/17 19:17 Home Medications: Ambulatory Orders Amoxicillin - [Amoxicillin 500mg Capsule -] 500 mg PO TID 11/22/17 Tramadol HCl 50 mg PO TID #9 tablet MDD 3 11/22/17 Anemia: No Asthma: No Cancer: No Cardiac Disorders: No CVA: No COPD: No DVT: No Dementia: No Diabetes: No Dialysis: No GI Disorders: No Disorders: No HTN: No Hypercholesterolemia: No Kidney Stones: No Liver Disease: No Psychiatric Problems: Yes (anxiety depression) Seizures: No Thyroid Disease: No Lung CA: No - Surgical History Abdominal Surgery: No Appendectomy: No Cardiac Surgery: No Cholecystectomy: No Gastric Stapling: No GI Surgery: No Lung Surgery: No Neurologic Surgery: No - Reproductive History (#): 1 Para: 1 Cervical CA: No Dysfunctional Uterine Bleeding: No Ectopic : No Endometrial CA: No Polycystic Ovaries: No Therapeutic (s) & number: No Tubal Ligation: No Spontaneous : 0 - Immunization History Immunization Up to Date: Yes - Suicide/Smoking/Psychosocial Hx Smoking History: Former smoker Have you smoked in the past 12 months: No Number of Cigarettes Smoked Daily: 1 Information on smoking cessation initiated: No Hx Alcohol Use: No Drug/Substance Use Hx: No Substance Use Type: None, Marijuana *Physical Exam - Vital Signs Last Vital Signs Temp Pulse Resp BP Pulse Ox 98.6 F 66 18 141/86 99 11/22/17 19:13 11/22/17 19:13 11/22/17 19:13 11/22/17 19:13 11/22/17 19:13 Medical Decision Making - Medical Decision Making 11/22/17 20:02 27 yo F with no significant PMH presents to [facility] with dental pain. Dental block performed, patient expressed immediate relief. [employer] referenced, patient has no previous use of opioids, will send TRamadol rx. Patient reports she is but "needs to control the pain, and I' ll stop if I have to." Advised patient she can not breastfeed while taking this medication and that she should discard all breastmilk until after 24 hours after the last dose of this medication prior to again. Patient verbalized understanding and agrees to paln. *DC/Admit/Observation/Transfer Diagnosis at time of Disposition: Toothache - Discharge Dispostion Disposition: HOME Condition at time of disposition: Stable Admit: No - Prescriptions Prescriptions: Tramadol HCl 50 mg PO TID #9 tablet MDD 3 - Referrals Referrals: Rolando Hoyos MD [Primary Care Provider] - - Patient Instructions Printed Discharge Instructions: DI for Dental Pain Additional Instructions: Please take medications as prescribed. As discussed, do not breastfeed while taking this medication, you must wait until at least 24 hours have passed, and be sure to discard your breastmilk during that time. Please follow up with your dentist as scheduled on Friday. If you develop any new or worsening symptoms, please return to the ER. - Post Discharge Activity
[2017-11-22] MEDS ORDERED: BUPIVACAINE HCL 0.5% 250 MG/50 ML VIAL IJ ONE (19:45)
[2017-11-22] MEDS ORDERED: BUPIVACAINE HCL/PF 0.5% (5MG/ML) 10 ML VIAL ONE (19:48)
== END 2017-11-22 20:11 | disposition home or self-care (01) ==
LOC: JERFT 19:12
PROC: 3E013BZ Introduction of Anesthetic Agent into Subcutaneous Tissue, Percutaneous Approach (ICD-10-PCS; principal; 2017-11-22)
DX: K08.89 Other specified disorders of teeth and supporting structures (principal); F41.8 Other specified anxiety disorders
CPT/HCPCS: 96372; 99281-25

== ENCOUNTER 2018-09-03 13:55 | Inpatient (IN) | payer OTHER ==
[2018-09-03 15:15] VITALS: BMI 27.8
[2018-09-03] MEDS ORDERED: DINOPROSTONE 10 MG VAGINAL SUPPOSITORY VG ONE (15:31)
[2018-09-03 15:37] LABS: BASO % 0.3 % (0-2.0); EOS % 0.8 % (0-4.5); HEMATOCRIT 35.7 % (32.4-45.2); LYMPH % 19.1 % (8-40); MCH 28.6 pg (25.7-33.7); MCHC 33.5 g/dl (32.0-36.0); MEAN CELL VOLUME 85.4 fl (80-96); MEAN PLT VOLUME 9.7 fl (7.5-11.1); NEUT % 71.8 % (42.8-82.8); PLATELET COUNT 178 K/MM3 (134-434); RBC 4.18 M/mm3 (3.60-5.2); RDW 16.1 % (11.6-15.6); WHITE BLOOD COUNT 9.3 K/mm3 (4.0-10.0)
--- NOTE | 2018-09-03 15:37 | HP ---
Past Medical History - Admission Chief Complaint: Postdates History of Present Illness: 27 yo @ 40 weeks gestation, EDC 09/03/18, admitted for induction of labor due to postdates . She denies any vaginal bleeding nor ROM. History Source: Patient Limitations to Obtaining History: No Limitations - Past Medical History ...: 2 ...Para: 1 ...Term: 1 ...: 1 ...Spon : 0 ...Induced : 0 ...Multiple Gestation: 0 ...LMP: 11/27/17 ... Weeks Gestation by Dates: 40 ...EDC by Dates: 09/03/18 ...EDC by Sono: 09/03/18 - Past Surgical History Past Surgical History: Yes: None Hx Myomectomy: No Hx Transabdominal Cerclage: No - Smoking History Smoking history: Former smoker Have you smoked in the past 12 months: Yes Aproximately how many cigarettes per day: 1 - Alcohol/Substance Use Hx Alcohol Use: No - Social History Usual Living Arrangement: Yes: With Spouse History of Recent Travel: No Home Medications - Allergies Allergies/Adverse Reactions: Allergies Allergy/AdvReac Type Severity Reaction Status Date / Time cefprozil [From Cefzil] Allergy Intermediate Hives Verified 06/03/18 14:29 - Home Medications Home Medications: Ambulatory Orders Amoxicillin - [Amoxicillin 500mg Capsule -] 500 mg PO BID 11/22/17 Acetaminophen W/ Codeine #3 [Tylenol # 3 -] 1 tab PO Q6H PRN 06/03/18 Vitamins ([facility]) - 1 tab PO DAILY 06/03/18 Family Disease History - Family Disease History Family History: Unremarkable Review of Systems - Review of Systems Constitutional: reports: No Symptoms Eyes: reports: No Symptoms HENT: reports: No Symptoms Neck: reports: No Symptoms Cardiovascular: reports: No Symptoms Respiratory: reports: No Symptoms Gastrointestinal: reports: No Symptoms Genitourinary: reports: No Symptoms Breasts: reports: No Symptoms Reported Musculoskeletal: reports: No Symptoms Integumentary: reports: No Symptoms Neurological: reports: No Symptoms Endocrine: reports: No Symptoms Hematology/Lymphatic: reports: No Symptoms Psychiatric: reports: No Symptoms Pain Intensity: 0 Physical Exam - Maternity Vital Signs: Vital Signs Temperature 98.4 F 09/03/18 13:55 Pulse Rate 79 09/03/18 15:00 Respiratory Rate 20 09/03/18 15:00 Blood Pressure 127/66 09/03/18 15:00 O2 Sat by Pulse Oximetry (%) Constitutional: Yes: Well Nourished Eyes: Yes: Conjunctiva Clear HENT: Yes: Atraumatic Neck: Yes: Supple Cardiovascular: Yes: Regular Rate and Rhythm Lungs: Clear to auscultation - Abdominal Exam/OB Number of Fetuses: Single Presentation: Vertex - Physical Exam Integumentary: Yes: WNL ...Motor Strength: WNL Psychiatric: Yes: Alert, Oriented Problem List - Problems (1) Post-dates Code(s): O48.0 - POST-TERM Qualifiers: Post-term type: 40-42 weeks gestation Qualified Code(s): O48.0 - Post-term Assessment/Plan Postdates Admit for cervidil induction
[2018-09-03 15:45] LABS: INR 0.98 (0.83-1.09); PROTHROMBIN TIME (PATIENT) 11.6 SEC (9.7-13.0)
[2018-09-03] MEDS ORDERED: DEXTROSE 5%-LACTATED RINGERS 1,000 ML IV SCH (15:45)
[2018-09-03 15:48] LABS: ACTIVATED PTT 26.3 SECONDS (25.2-36.5)
[2018-09-03 16:08] LABS: ANION GAP 10 MMOL/L (8-16); BLOOD UREA NITROGEN 8 mg/dL (7-18); CALCIUM 8.9 mg/dL (8.5-10.1); CHLORIDE 104 mmol/L (98-107); CO2 24 mmol/L (21-32); CREATININE 0.4 mg/dL (0.55-1.3); GLUCOSE,RANDOM 64 mg/dL (74-106); SODIUM 138 mmol/L (136-145)
[2018-09-04] MEDS ORDERED: DEXTROSE 5%-LACTATED RINGERS 500 ML IV ONE ×2 (04:00→05:00)
[2018-09-04] MEDS ORDERED: BUTORPHANOL TARTRATE 1 MG/ML VIAL IVPUSH ONE (04:00)
[2018-09-04] MEDS ORDERED: BUTORPHANOL TARTRATE 1 MG/ML VIAL ONE ×2 (04:08)
[2018-09-04] MEDS ORDERED: PROMETHAZINE HCL 25 MG/1 ML VIAL ONE (04:08)
[2018-09-04] MEDS: PROMETHAZINE HCL 25 MG/1 ML VIAL IVPUSH SCH (04:15)
[2018-09-04] MEDS ORDERED: FENTANYL/BUPIVACAINE/NS/PF - PCEA - 50 ML DISP.SYRIN EP ONE ×3 (10:01→16:59)
--- NOTE | 2018-09-04 10:05 | PN ---
Progress Note (short form) - Note Progress Note: 27 yo @ 40 weeks gestation, EDC 09/03/18, admitted for IOL, seen and evaluated. She's lying in bed, status post Cervidil and stadol. FHR : Reassuring Ona : + irregular contractions VE : /-1 AROM ( clear ) A / P : Status post Cervidil induction Pitocin augmentation Epidural anesthesia as requested by patient Anticipate Problem List - Problems (1) Post-dates Code(s): O48.0 - POST-TERM Qualifiers: Post-term type: 40-42 weeks gestation Qualified Code(s): O48.0 - Post-term
[2018-09-04] MEDS ORDERED: NALOXONE HCL 0.4 MG/ML VIAL IVPUSH PRN (10:12)
[2018-09-04] MEDS ORDERED: LIDO 2%/EPI 1:200000 PRESRVFRE (20 ML SDVIAL) ONE (10:14)
[2018-09-04] MEDS ORDERED: FENTANYL/BUPIVACAINE/NS/PF - PCEA - 50 ML DISP.SYRIN EP SCH (10:15)
[2018-09-04] MEDS ORDERED: ELECTROLYTE-148 SOLN 1,000 ML IV SCH (10:15)
[2018-09-04] MEDS ORDERED: OXYTOCIN 30 UNITS in 0.9% NS 30 UNIT/500 ML INFUS.BAG IVPB SCH (10:15)
[2018-09-04] MEDS ORDERED: OXYTOCIN 30 UNITS in 0.9% NS 30 UNIT/500 ML INFUS.BAG IVPB ONE (10:30)
[2018-09-04] MEDS ORDERED: ePHEDrine SULFATE 50 MG/1 ML AMPULE ONE (10:35)
[2018-09-04] MEDS ORDERED: BUPIVACAINE HCL/PF 0.25% (2.5MG/ML) 10 ML VIAL ONE (17:11)
[2018-09-04] MEDS ORDERED: OXYTOCIN 20 UNITS in 0.9% NS 20 UNIT/1,000 ML INFUS.BAG IV ONE (17:58)
[2018-09-04] MEDS ORDERED: BISACODYL 10 MG SUPP.RECT RC PRN (18:55)
[2018-09-04] MEDS ORDERED: BENZOCAINE 20% 57 GM BOTTLE TP PRN (18:55)
[2018-09-04] MEDS ORDERED: BENZOCAINE 28 GM HEMORRHOIDAL OINTMENT TP PRN (18:55)
[2018-09-04] MEDS ORDERED: WITCH HAZEL 50% (TUCKS) 40 PAD/JAR PAD TP PRN (18:55)
[2018-09-04] MEDS ORDERED: METHYLERGONOVINE MALEATE 0.2 MG/1 ML AMP IM PRN (18:55)
--- NOTE | 2018-09-04 18:59 | PN ---
Delivery - Delivery Vaginal Delivery: Spontaneous Type of Anesthesia: Epidural Episiotomy/Laceration: 1st degree EBL (cc): 250 Delivery, Single - [place] Feeding Plan Initial Plan: Exclusive throughout hospitalization Remarks - Remarks Remarks: Normal spontaneous vaginal delivery of a live girl over first degree laceration. Nose / Oropharynx suctioned @ perineum. Cord clamped and cut. Baby handed to nurse. Placenta expelled spontaneously intact Laceration repaired with 2.0 byosyn.
[2018-09-04] MEDS ORDERED: OXYTOCIN 20 UNITS in 0.9% NS 20 UNIT/1,000 ML INFUS.BAG IV SCH (19:00)
[2018-09-04] MEDS: FERROUS SO4 325 MG TABLET (FP) PO SCH (23:08)
[2018-09-05] MEDS: PROMETHAZINE HCL 25 MG/1 ML VIAL IVPUSH SCH (06:20)
[2018-09-05] MEDS: IBUPROFEN 600 MG TABLET (FP) PO PRN ×2 (06:44→17:15)
[2018-09-05] MEDS: ACETAMINOPHEN 325 MG TABLET (FP) PO PRN ×2 (06:45→17:16)
[2018-09-05 07:26] LABS: BASO % 0.4 % (0-2.0); EOS % 1.1 % (0-4.5); HEMATOCRIT 34.7 % (32.4-45.2); HEMOGLOBIN 11.3 GM/dL (10.7-15.3); LYMPH % 14.1 % (8-40); MCH 28.1 pg (25.7-33.7); MCHC 32.6 g/dl (32.0-36.0); MEAN CELL VOLUME 86.2 fl (80-96); MEAN PLT VOLUME 9.3 fl (7.5-11.1); MONO % 7.3 % (3.8-10.2); NEUT % 77.1 % (42.8-82.8); PLATELET COUNT 181 K/MM3 (134-434); RBC 4.03 M/mm3 (3.60-5.2); WHITE BLOOD COUNT 16.3 K/mm3 (4.0-10.0)
--- NOTE | 2018-09-05 07:58 | PN ---
Post Progress Note - Subjective Subjective: 27 yo Para 2 status post vaginal delivery, seen and evaluated. Doing well. Post Day: 1 Type of Delivery: Vital Signs: Vital Signs Temperature 98.0 F 09/05/18 06:34 Pulse Rate 78 09/05/18 06:34 Respiratory Rate 20 09/05/18 06:34 Blood Pressure 122/74 09/05/18 06:34 O2 Sat by Pulse Oximetry (%) 97 09/04/18 20:00 Breast Exam: Yes: Soft Uterus: Yes: Fundus Firm Abdomen/GI: Yes: Abdomen soft, Tolerating PO Lochia: Yes: Rubra Lochia, amount: Moderate Extremities: Yes: Calves non-tender Activity: Ambulating - Labs Labs: CBC WBC 9.3 K/mm3 (4.0-10.0) 09/03/18 15:00 RBC 4.18 M/mm3 (3.60-5.2) 09/03/18 15:00 Hgb 12.0 GM/dL (10.7-15.3) 09/03/18 15:00 Hct 35.7 % (32.4-45.2) 09/03/18 15:00 MCV 85.4 fl (80-96) 09/03/18 15:00 MCH 28.6 pg (25.7-33.7) 09/03/18 15:00 MCHC 33.5 g/dl (32.0-36.0) 09/03/18 15:00 RDW 16.1 % (11.6-15.6) H 09/03/18 15:00 Plt Count 178 K/MM3 (134-434) 09/03/18 15:00 MPV 9.7 fl (7.5-11.1) 09/03/18 15:00 Absolute Neuts (auto) 6.7 K/mm3 (1.5-8.0) 09/03/18 15:00 Neutrophils % 71.8 % (42.8-82.8) D 09/03/18 15:00 Lymphocytes % 19.1 % (8-40) D 09/03/18 15:00 Monocytes % 8.0 % (3.8-10.2) 09/03/18 15:00 Eosinophils % 0.8 % (0-4.5) 09/03/18 15:00 Basophils % 0.3 % (0-2.0) 09/03/18 15:00 Nucleated RBC % 0 % (0-0) 09/03/18 15:00 Problem List - Problems (1) Post-dates Code(s): O48.0 - POST-TERM Qualifiers: Post-term type: 40-42 weeks gestation Qualified Code(s): O48.0 - Post-term (2) Status post normal vaginal delivery Code(s): SPO4822 - Assessment/Plan Status post vaginal delivery Stable Continue routine care
[2018-09-05] MEDS: FERROUS SO4 325 MG TABLET (FP) PO SCH ×2 (09:10→22:38)
[2018-09-05] MEDS: PRENATAL VITAMINS W/ FOLIC ACID TABLET (FP) PO SCH (09:10)
[2018-09-05] MEDS ORDERED: DIPHTH,PERTUSS(ACELL),TET 0.5 ML DISP.SYRIN IM ONE (10:00)
[2018-09-05 20:42] VITALS: PULSE 74
[2018-09-05] MEDS ORDERED: SENNOSIDES/DOCUSATE COMBO (SENNA PLUS) TABLET (UD) PO PRN (22:00)
[2018-09-06 08:34] VITALS: BP 109/70; TEMP 98.3
[2018-09-06] MEDS: PRENATAL VITAMINS W/ FOLIC ACID TABLET (FP) PO SCH (09:10)
[2018-09-06] MEDS: FERROUS SO4 325 MG TABLET (FP) PO SCH (09:10)
== END 2018-09-06 14:00 | disposition home or self-care (01) | DRG 560 ==
LOC: JLDR 13:55 → J3W 09-04 21:26
PROVIDERS: ADMIT Obstetrics & Gynecology; ATTEND Obstetrics & Gynecology
PROC: 3E0P7VZ Introduction of Hormone into Female Reproductive, Via Natural or Artificial Opening (ICD-10-PCS; 2018-09-03)
PROC: 10E0XZZ Delivery of Products of Conception, External Approach (ICD-10-PCS; principal; 2018-09-04)
PROC: 0W8NXZZ Division of Female Perineum, External Approach (ICD-10-PCS; 2018-09-04)
PROC: 0HQ9XZZ Repair Perineum Skin, External Approach (ICD-10-PCS; 2018-09-04)
PROC: 3E0334Z Introduction of Serum, Toxoid and Vaccine into Peripheral Vein, Percutaneous Approach (ICD-10-PCS; 2018-09-05)
DX: O70.0 First degree perineal laceration during delivery (principal); O48.0 Post-term pregnancy; Z3A.40 40 weeks gestation of pregnancy; O26.893 Other specified pregnancy related conditions, third trimester; Z67.41 Type O blood, Rh negative; Z37.0 Single live birth
CPT/HCPCS: 36415; 59409; 80048; 85025; 85461; 85610; 85730; 86593; 86850; 86900; 86901; 86999; 90686; 90715; G0008

== ENCOUNTER 2022-03-07 11:32 | Emergency (ER) | payer OTHER ==
[2022-03-07 11:38] VITALS: BP 118/65; PULSE 90; TEMP 97.7; BMI 20.3
[2022-03-08 17:10] LABS: SARS-CoV-2 NAA Not Detected (Not Detected)
== END 2022-03-07 15:26 | disposition home or self-care (01) ==
LOC: JER 11:32
DX: B34.9 Viral infection, unspecified (principal)
CPT/HCPCS: 87804; 99283-25; C9803-CS; U0003; U0005

== ENCOUNTER 2022-06-27 20:31 | Emergency (ER) | payer OTHER ==
[2022-06-27 20:44] VITALS: BP 108/69; PULSE 69; RESP 19; TEMP 97.8; BMI 20.1
[2022-06-27] MEDS ORDERED: ACETAMINOPHEN 500 MG TABLET (FP) PO ONE (22:16)
[2022-06-27] MEDS ORDERED: IBUPROFEN 600 MG TABLET (FP) PO ONE ×2 (22:16→22:17)
[2022-06-27] MEDS ORDERED: ACETAMINOPHEN 500 MG TABLET (FP) ONE (22:18)
== END 2022-06-27 23:27 | disposition home or self-care (01) ==
LOC: JER 20:31 → JERFT 20:31
DX: M54.2 Cervicalgia (principal); X50.0XXA Overexertion from strenuous movement or load, initial encounter
CPT/HCPCS: 72125-TC; 99284-25

== ENCOUNTER 2023-03-19 20:50 | Emergency (ER) | payer OTHER ==
[2023-03-19 21:09] VITALS: BP 108/61; PULSE 74; RESP 18; TEMP 97.7; BMI 27.6
[2023-03-19] MEDS ORDERED: AZITHROMYCIN 500 MG TABLET PO ONE (21:52)
[2023-03-19] MEDS ORDERED: AZITHROMYCIN 500 MG TABLET ONE (21:54)
== END 2023-03-19 21:55 | disposition home or self-care (01) ==
LOC: JERFT 20:50 → JER 20:50 → JERFT 21:55
DX: O99.513 Diseases of the respiratory system complicating pregnancy, third trimester (principal); R09.89 Other specified symptoms and signs involving the circulatory and respiratory systems; R09.3 Abnormal sputum; J01.90 Acute sinusitis, unspecified; Z3A.32 32 weeks gestation of pregnancy
CPT/HCPCS: 99283-25

== ENCOUNTER 2023-05-13 20:01 | Emergency (ER) | payer OTHER ==
[2023-05-13 20:19] VITALS: BMI 28.0
[2023-05-13 22:40] LABS: BASO % 0.7 % (0-2.0); EOS % 2.6 % (0-4.5); HEMATOCRIT 30.5 % (32.4-45.2); HEMOGLOBIN 9.9 GM/dL (10.7-15.3); MCH 26.1 pg (25.7-33.7); MCHC 32.5 g/dl (32.0-36.0); MEAN CELL VOLUME 80.4 fl (80-96); MEAN PLT VOLUME 8.5 fl (7.5-11.1); MONO % 9.2 % (3.8-10.2); NEUT % 61.5 % (42.8-82.8); PLATELET COUNT 204 10^3/uL (134-434); RBC 3.79 M/mm3 (3.60-5.2); RDW 17.1 % (11.6-15.6); WHITE BLOOD COUNT 7.7 K/mm3 (4.0-10.0)
[2023-05-13 22:43] LABS: EPI CELLS 15 /uL (0-25.1); HYALINE CASTS 0 /uL (0-3.1); PH,URINE 7.5 (5.0-8.0); URINE APPEARANCE CLEAR; URINE BACTERIA 33 /uL (0-1359); URINE BILIRUBIN NEGATIVE (NEGATIVE); URINE COLOR YELLOW; URINE GLUCOSE (UA) NEGATIVE (NEGATIVE); URINE KETONE NEGATIVE (NEGATIVE); URINE LEUK ESTERASE 1+ (NEGATIVE); URINE NITRITE NEGATIVE (NEGATIVE); URINE PROTEIN NEGATIVE (NEGATIVE); URINE RBC 109 /uL (0-23.9); URINE UROBILINOGEN 0.2 mg/dL (0.2-1.0); URINE WBC 25 /uL (0-25.8)
[2023-05-13 22:46] LABS: PROTHROMBIN TIME (PATIENT) 11.6 SEC (9.7-13.0)
[2023-05-13 22:48] LABS: ACTIVATED PTT 32.3 SECONDS (25.2-36.5)
[2023-05-13 22:50] LABS: POTASSIUM 3.9 mmol/L (3.5-5.1)
[2023-05-13 22:51] LABS: CALCIUM 8.7 mg/dL (8.5-10.1)
[2023-05-13 22:52] LABS: ALBUMIN 2.6 g/dl (3.4-5.0); BLOOD UREA NITROGEN 12.1 mg/dL (7-18)
[2023-05-13 22:55] LABS: CREATININE 0.6 mg/dL (0.55-1.3)
[2023-05-13 22:57] LABS: BILIRUBIN,TOTAL 0.2 mg/dL (0.2-1); TOT PROT 5.9 g/dl (6.4-8.2)
[2023-05-14 01:32] VITALS: BP 126/72; PULSE 59; RESP 16; TEMP 97.7
== END 2023-05-14 01:30 | disposition home or self-care (01) ==
LOC: JER 20:01
DX: O90.89 Other complications of the puerperium, not elsewhere classified (principal); M54.9 Dorsalgia, unspecified; R06.02 Shortness of breath; R07.9 Chest pain, unspecified; M79.89 Other specified soft tissue disorders
CPT/HCPCS: 36415; 71275-TC; 80053; 81003; 84484; 84703; 85025; 85610; 85730; 87077; 87086; 87186; 93005; 93010; 93970-TC; 99285-25; Q9967